=== PATIENT | female | born 1990 | race Caucasian/White ===

== ENCOUNTER 2016-12-13 03:22 | Emergency (ER) | payer BC ==
[2016-12-13 03:34] VITALS: BMI 25.7
[2016-12-13] MEDS ORDERED: METOCLOPRAMIDE HCL INJECTION 10 MG/2 ML VIAL IVPB ONE (03:59)
[2016-12-13] MEDS ORDERED: SODIUM CHLORIDE 1,000 ML IV STA (03:59)
[2016-12-13] MEDS ORDERED: METOCLOPRAMIDE HCL INJECTION 10 MG/2 ML VIAL ONE (04:06)
--- NOTE | 2016-12-13 04:14 | PDOC ---
*Physical Exam - Vital Signs Last Vital Signs Temp Pulse Resp BP Pulse Ox 98.9 F 96 H 18 115/76 100 12/13/16 03:32 12/13/16 03:32 12/13/16 03:32 12/13/16 03:32 12/13/16 03:32 ED Treatment Course - LABORATORY CBC & Chemistry Diagram: 12/13/16 04:17 12/13/16 04:17 Medical Decision Making - Medical Decision Making 12/13/16 04:14 agree with care from CELSO Michaud *DC/Admit/Observation/Transfer Diagnosis at time of Disposition: Epigastric pain - Discharge Dispostion Disposition: HOME Condition at time of disposition: Improved - Prescriptions Prescriptions: Mag Hydrox/Al Hydrox/Simeth [Mylanta Suspension -] 30 ml PO Q6H #1 bottle Famotidine [Pepcid] 20 mg PO DAILY #14 tablet - Referrals Referrals: Gino Harvey MD [Staff Physician] - - Patient Instructions Printed Discharge Instructions: Gastritis Additional Instructions: Take medications as directed
[2016-12-13 04:31] LABS: BASOPHIL 0.1 % (0-2.0); EOSINOPHIL 0.6 % (0-4.5); MCH 26.7 pg (25.7-33.7); MCHC 32.4 g/dl (32.0-36.0); MEAN CELL VOLUME 82.5 fl (80-96); MEAN PLT VOLUME 8.2 fl (7.5-11.1); NEUTROPHILS 80.4 % (42.8-82.8); PLATELET COUNT 211 K/MM3 (134-434); RDW 15.1 % (11.6-15.6); WHITE BLOOD COUNT 6.4 K/mm3 (4.0-10.0)
[2016-12-13 04:49] LABS: ALBUMIN 3.8 g/dl (3.4-5.0); ALK PHOS 95 U/L (45-117); ANION GAP 11 (8-16); BILIRUBIN,TOTAL 0.3 mg/dL (0.2-1.0); CALCIUM 8.4 mg/dL (8.5-10.1); CO2 27 mmol/L (21-32); CREATININE 0.7 mg/dL (0.55-1.02); GLUCOSE,RANDOM 85 mg/dL (74-106); SGOT/AST 28 U/L (15-37); SGPT/ALT 36 U/L (12-78); TOT PROT 6.9 g/dl (6.4-8.2)
[2016-12-13 04:54] LABS: BILIRUBIN,DIRECT < 0.1 mg/dL (0.0-0.2)
--- NOTE | 2016-12-13 05:19 | PDOC ---
History of Present Illness - General Chief Complaint: Pain Stated Complaint: ABDOMINAL PAIN Time Seen by Provider: 12/13/16 03:27 History Source: Patient Exam Limitations: No Limitations - History of Present Illness Travel History: No Initial Comments: 12/13/16 05:15 26yo Female patient presents to ED c/o epigastric abdominal pain. Patient states this past Sunday, h/a, lower abd pain, and dizziness symptoms. She went to [facility] and was diagnosed with renal colic after Ct-scan @ [facility] . Patient states having a non- obstructed 3mm stone. She reports no meds given and was told she would be contacted with a Urology consult today. Patient presents to ED this morning c/o worsening pain, fever (101.4), chills and vomiting. LNMP: "I dont know. I have a 2 month old baby." Timing/Duration: reports: getting worse Quality: reports: moderate Abdominal Pain Onset Location: reports: epigastric Pain Radiation: reports: no radiation Activities at Onset: reports: no specific activity Treatment Prior to Arrive: worse with: analgesics, antacids, cold pack, heat, laxative, enema, other Aggravating Factors: worse with: None, Defecation, Eating, Emotional upset, Exertion, [place], Movement, Voiding, Change in position Alleviating Factors: worse with: None, Belching, Shallow Breathing, Defecation, Eating, Holding Breath, Passing Gas, Change in Position, Rest, Voiding, Vomiting Past History - Travel Traveled outside of the country in the last 30 days: No Close contact w/someone who was outside of country & ill: No - Past Medical History Allergies/Adverse Reactions: Allergies Allergy/AdvReac Type Severity Reaction Status Date / Time No Known Allergies Allergy Verified 12/13/16 03:33 Home Medications: Ambulatory Orders NK [No Known Home Medication] 08/04/15 Anemia: Yes Asthma: No Cancer: No Cardiac Disorders: No CVA: No COPD: No DVT: No Dementia: No Diabetes: No Dialysis: No GI Disorders: No Disorders: No HTN: No Hypercholesterolemia: No HIV: No Kidney Stones: Yes Liver Disease: No Psychiatric Problems: No Suicide Attempt (Hx): No Seizures: No Thyroid Disease: No Lung CA: No - Reproductive History Is Patient Now?: No (#): 1 Para: 1 Cervical CA: No Dysfunctional Uterine Bleeding: No Ectopic : No Endometrial CA: No Polycystic Ovaries: No Therapeutic (s) & number: No Tubal Ligation: No Spontaneous : 0 - Immunization History Immunization Up to Date: No - Psycho/Social/Smoking Cessation Hx Anxiety: No Suicidal Ideation: No Smoking History: Never smoked Have you smoked in the past 12 months: No Number of Cigarettes Smoked Daily: 2 Cigars Per Day: 0 Information on smoking cessation initiated: No Hx Alcohol Use: No Drug/Substance Use Hx: No Substance Use Type: None Hx Substance Use Treatment: No Abd/GI Specific PMHX - Complaint Specific PMHX Colitis: No Diverticulitis: No Gall Bladder Disease: No GERD: No Hepatitis: No Irritable Bowel Synd (IBS): No Pancreatitis: No GI Ulcer Disease: No Review of Systems - Review of Systems Able to Perform ROS?: Yes Is the patient limited [place] proficient: No Constitutional: Yes: Chills, Fever ABD/GI: Yes: Nausea, Poor Fluid Intake, Vomiting, Abdominal cramping. No: Abdominal Distended, Constipated, Diarrhea, Poor Appetite, Rectal Bleeding : No: Burning, Dysuria, Frequency, Flank Pain, Hematuria, Urgency Musculoskeletal: No: Back Pain All Other Systems: Reviewed and Negative *Physical Exam - Vital Signs Last Vital Signs Temp Pulse Resp BP Pulse Ox 98.9 F 96 H 18 115/76 100 12/13/16 03:32 12/13/16 03:32 12/13/16 03:32 12/13/16 03:32 12/13/16 03:32 - Physical Exam General Appearance: Yes: Nourished, Appropriately Dressed. No: Apparent Distress, Mild Distress, Moderate Distress, Severe Distress Neck: positive: Trachea midline, Normal Thyroid, Supple. negative: Rigid, Stridor, Lymphadenopathy (R), Lymphadenopathy (L) Respiratory/Chest: positive: Lungs Clear, Normal Breath Sounds. negative: Chest Tender, Respiratory Distress, Accessory Muscle Use, Labored Respiration, Rapid RR, Rhonchi, Stridor, Wheezing Cardiovascular: positive: Regular Rhythm, Regular Rate Gastrointestinal/Abdominal: positive: Normal Bowel Sounds, Tender (Epigastric region), Soft, Rebound, Tenderness (Epigastric region). negative: Distended, Guarding Musculoskeletal: positive: Normal Inspection. negative: CVA Tenderness Extremity: positive: Normal Capillary Refill, Normal Inspection, Normal Range of Motion. negative: Pedal Edema, Swelling, Calf Tenderness, Erythema, Inflammation Integumentary: positive: Normal Color, Dry, Warm. negative: Erythema, Rash, Swelling Neurologic: positive: chemical maker II-XII NML intact, Fully Oriented, Alert, Normal Mood/ Affect, Normal Response, Motor Strength 10/20 ED Treatment Course - LABORATORY CBC & Chemistry Diagram: 12/13/16 04:17 12/13/16 04:17 - ADDITIONAL ORDERS Additional order review: Laboratory Results 12/13/16 04:17 Sodium 140 Potassium 3.8 Chloride 102 Carbon Dioxide 27 Anion Gap 11 BUN 13 Creatinine 0.7 D Random Glucose 85 Calcium 8.4 L Total Bilirubin 0.3 D Direct Bilirubin < 0.1 AST 28 D ALT 36 D Alkaline Phosphatase 95 D Total Protein 6.9 Albumin 3.8 12/13/16 04:17 RBC 4.49 MCV 82.5 MCHC 32.4 RDW 15.1 D MPV 8.2 Neutrophils % 80.4 D Lymphocytes % 8.9 D Monocytes % 10.0 Eosinophils % 0.6 Basophils % 0.1 - RADIOLOGY Radiology Studies Ordered: Category Date Time Status GALLBLADDER US [US] Stat Ultrasound 12/13/16 04:13 Ordered - Medications Given in the ED: ED Medications Discontinued Medications Generic Name Dose Route Start Last Admin Trade Name Freq PRN Reason Stop Dose Admin Sodium Chloride 1,000 mls @ 1,000 mls/hr 12/13/16 03:59 12/13/16 04:20 Normal Saline - IV 12/13/16 04:58 1,000 mls/hr ASDIR STA Administration Metoclopramide HCl 10 mg 12/13/16 03:59 12/13/16 04:21 Reglan Injection - IVPB 12/13/16 04:00 10 mg ONCE ONE Administration
[2016-12-13 06:27] LABS: URINE APPEARANCE CLEAR; URINE BILIRUBIN NEGATIVE (NEGATIVE); URINE BLOOD NEGATIVE (NEGATIVE); URINE COLOR YELLOW; URINE GLUCOSE (UA) NEGATIVE (NEGATIVE); URINE KETONE 2+ (NEGATIVE); URINE LEUK ESTERASE NEGATIVE (NEGATIVE); URINE NITRITE NEGATIVE (NEGATIVE); URINE UROBILINOGEN NEGATIVE E.U./dl (0.2-1.0)
[2016-12-13 06:29] LABS: URINE PROTEIN 1+ (NEGATIVE)
[2016-12-13 06:35] LABS: URINE MUCUS MANY; URINE RBC 1 /hpf (0-3); URINE WBC 3 /hpf (3-5)
[2016-12-13 06:58] VITALS: BP 94/50; PULSE 63; TEMP 98.4
[2016-12-13] MEDS ORDERED: FAMOTIDINE 20 MG/50 ML IVPB 50 ML IVPB ONE ×2 (07:34→07:49)
[2016-12-13] MEDS ORDERED: MAG HYDROX/AL HYDROX/SIMETH 30 ML UNIT-DOSE CUP PO ONE (07:35)
[2016-12-13] MEDS ORDERED: ONDANSETRON 4 MG/2 ML VIAL IVPUSH ONE (07:35)
--- NOTE | 2016-12-13 07:41 | PDOC ---
*Physical Exam - Vital Signs Last Vital Signs Temp Pulse Resp BP Pulse Ox 98.4 F 63 18 94/50 96 12/13/16 06:57 12/13/16 06:57 12/13/16 06:57 12/13/16 06:57 12/13/16 06:57 - Physical Exam General Appearance: Yes: Appropriately Dressed. No: Apparent Distress HEENT: positive: Normal Voice Neck: positive: Supple Respiratory/Chest: negative: Respiratory Distress Gastrointestinal/Abdominal: positive: Normal Bowel Sounds, Tender (to epigastric ), Soft. negative: Distended, Guarding, Rebound Musculoskeletal: negative: CVA Tenderness Integumentary: positive: Dry, Warm Neurologic: positive: Fully Oriented, Alert, Normal Mood/Affect ED Treatment Course - LABORATORY CBC & Chemistry Diagram: 12/13/16 04:17 12/13/16 04:17 - ADDITIONAL ORDERS Additional order review: Laboratory Results 12/13/16 12/13/16 06:08 04:17 Sodium 140 Potassium 3.8 Chloride 102 Carbon Dioxide 27 Anion Gap 11 BUN 13 Creatinine 0.7 D Random Glucose 85 Calcium 8.4 L Total Bilirubin 0.3 D Direct Bilirubin < 0.1 AST 28 D ALT 36 D Alkaline Phosphatase 95 D Total Protein 6.9 Albumin 3.8 Urine Color Yellow Urine Appearance Clear Urine pH 5.0 D Urine Protein 1+ H Urine Glucose (UA) Negative Urine Ketones 2+ H Urine Blood Negative Urine Nitrite Negative Urine Bilirubin Negative Urine Urobilinogen Negative Ur Leukocyte Esterase Negative Urine RBC 1 Urine WBC 3 Ur Epithelial Cells Rare Urine Mucus Many Urine HCG, Qual Negative 12/13/16 04:17 RBC 4.49 MCV 82.5 MCHC 32.4 RDW 15.1 D MPV 8.2 Neutrophils % 80.4 D Lymphocytes % 8.9 D Monocytes % 10.0 Eosinophils % 0.6 Basophils % 0.1 - Medications Given in the ED: ED Medications Discontinued Medications Generic Name Dose Route Start Last Admin Trade Name Freq PRN Reason Stop Dose Admin Sodium Chloride 1,000 mls @ 1,000 mls/hr 12/13/16 03:59 12/13/16 04:20 Normal Saline - IV 12/13/16 04:58 1,000 mls/hr ASDIR STA Administration Metoclopramide HCl 10 mg 12/13/16 03:59 12/13/16 04:21 Reglan Injection - IVPB 12/13/16 04:00 10 mg ONCE ONE Administration Medical Decision Making - Medical Decision Making 12/13/16 07:35 pt signed out to meat 7am today: 26-year-old female, no significant history, here with diffuse abdominal pain with nausea 4 days. [facility] and [facility] scan which showed a 3 mm non-obstructing stone, but does not remember on what side stone was seen or exact the location. States she was not started on medication because she is currently breast-feeding, but reports to me now that she has over 100 frozen bags of breast milk at home and is okay taking medications. Came to ED this a.m. because pain worsened yesterday and had a fever or 101 prior to coming to the ED. Vomited once yesterday. Pt states stool was softer after ingesting po contrast for her CAT scan yesterday, otherwise denies diarrhea or other change in bowel movements. Vitals here normal and found to have mostly epigastric pain on exam as per prior provider, neg and labs unremarkable, has since been given reglan. US RUQ pending. On reassessment now, pt in NAD but continues to have some ttp on palpation to epigastrium, mild ttp to RUQ but no murpheys and NT over mcburneys. Trial of GI cocktail in progress for possible gastritis/GERD. US pending 12/13/16 07:56 12/13/16 09:39 5mm non-obstructing R renal pole stone, GB wnl, no e/o catrachito. On reassessment, pt reports feeling better and appears well. Was able to boni po in ED. Stable for discharge w/ rxs and referral to PMD 12/13/16 10:11 12/13/16 10:11 12/13/16 10:11 *DC/Admit/Observation/Transfer Diagnosis at time of Disposition: Epigastric pain - Discharge Dispostion Disposition: HOME Condition at time of disposition: Improved - Prescriptions Prescriptions: Mag Hydrox/Al Hydrox/Simeth [Mylanta Suspension -] 30 ml PO Q6H #1 bottle Famotidine [Pepcid] 20 mg PO DAILY #14 tablet - Referrals Referrals: Gino Harvey MD [Staff Physician] - - Patient Instructions Printed Discharge Instructions: Gastritis Additional Instructions: Take medications as directed
[2016-12-13] MEDS ORDERED: MAG HYDROX/AL HYDROX/SIMETH 30 ML UNIT-DOSE CUP ONE (07:48)
[2016-12-13] MEDS ORDERED: ONDANSETRON 4 MG/2 ML VIAL ONE (07:49)
== END 2016-12-13 10:14 | disposition home or self-care (01) ==
LOC: JER 03:22
PROC: 3E0337Z Introduction of Electrolytic and Water Balance Substance into Peripheral Vein, Percutaneous Approach (ICD-10-PCS; principal; 2016-12-13)
PROC: 3E033GC Introduction of Other Therapeutic Substance into Peripheral Vein, Percutaneous Approach (ICD-10-PCS; 2016-12-13)
PROC: 3E033GC Introduction of Other Therapeutic Substance into Peripheral Vein, Percutaneous Approach (ICD-10-PCS; 2016-12-13)
DX: R10.13 Epigastric pain (principal); N20.0 Calculus of kidney
CPT/HCPCS: 36415; 76705-TC; 80048; 80076; 81003; 81015; 84703; 85025; 99283-25

== ENCOUNTER 2017-01-01 06:27 | Day surgery (SDC) | payer BC ==
[2016-12-28 12:58] VITALS: BMI 25.7
[2017-01-01 07:26] VITALS: TEMP 97.8
[2017-01-01] MEDS ORDERED: PROPOFOL 20 ML ONE ×2 (08:05)
[2017-01-01] MEDS ORDERED: MIDAZOLAM HCL 2 MG/2 ML SINGLE DOSE VIAL ONE (08:06)
[2017-01-01] MEDS ORDERED: LIDOCAINE HCL/PF 2% SDV 5ML VIAL ONE (08:21)
[2017-01-01] MEDS ORDERED: LEVOFLOXACIN 500 MG PREMIX BAG IVPB ONE (08:26)
--- NOTE | 2017-01-01 09:38 | OP ---
Operative Note - Note: Operative Date: 01/01/17 Pre-Operative Diagnosis: right renal stone Operation: right eswl Findings: 7mm right mid-pole stone Surgeon: Jose Cruz Michael Anesthesia: General Operative Report Dictated: Yes
[2017-01-01] MEDS ORDERED: ACETAMINOPHEN 325 MG TABLET (FP) PO PRN (09:51)
[2017-01-01] MEDS ORDERED: oxyCODONE HCL 5 MG TABLET PO PRN (09:51)
[2017-01-01] MEDS ORDERED: ONDANSETRON 4 MG/2 ML VIAL IVPUSH PRN (09:51)
[2017-01-01] MEDS ORDERED: oxyCODONE HCL 5 MG TABLET ONE (11:30)
[2017-01-01] MEDS ORDERED: oxyCODONE HCL 5 MG TABLET PO ONE (11:35)
[2017-01-01 12:21] VITALS: BP 98/59; PULSE 58
--- NOTE | 2017-01-02 13:16 | OP ---
DATE OF OPERATION: 01/01/2017 PREOPERATIVE DIAGNOSIS: Right renal stone. POSTOPERATIVE DIAGNOSIS: Right renal stone. PROCEDURE: Right extracorporeal shock wave lithotripsy. ATTENDING SURGEON: Jeet Churchill MD ANESTHESIA: General. DESCRIPTION OF OPERATION: The patient was brought in the operating room and placed in a supine position on the operating room table. Ultrasonography and fluoroscopy were performed. A 7-mm right mid-pole stent was identified. Patient was then given preoperative antibiotics, and anesthesia was administered. Extracorporeal shock wave lithotripsy was then performed, 2500 impulses at 20 joules of power were administered to the stone with excellent fragmentation under real-time ultrasonography and fluoroscopy. No complications were noted. The patient tolerated the procedure very well. The disposition of the patient was to the recovery room. JEET CHURCHILL M.D. [id number]
== END 2017-01-01 13:17 | disposition home or self-care (01) ==
LOC: JASU-SURG 06:27
PROVIDERS: ATTEND Urology
PROC: 0TF3XZZ Fragmentation in Right Kidney Pelvis, External Approach (ICD-10-PCS; principal; 2017-01-01 08:00)
DX: N20.0 Calculus of kidney (principal)
CPT/HCPCS: 84703; 94760

== ENCOUNTER 2021-03-09 01:25 | Emergency (ER) | payer BC ==
[2021-03-09 01:56] VITALS: BP 100/68; PULSE 89; TEMP 98.3; BMI 25.9
[2021-03-09 02:35] LABS: BASO % 0.5 % (0-2.0); EOS % 2.7 % (0-4.5); HEMATOCRIT 35.2 % (32.4-45.2); LYMPH % 17.6 % (8-40); MCH 28.3 pg (25.7-33.7); MEAN CELL VOLUME 83.2 fl (80-96); MEAN PLT VOLUME 8.4 fl (7.5-11.1); MONO % 9.8 % (3.8-10.2); NEUT % 69.4 % (42.8-82.8); PLATELET COUNT 274 10^3/uL (134-434); RBC 4.23 M/mm3 (3.60-5.2); RDW 13.6 % (11.6-15.6); WHITE BLOOD COUNT 6.5 K/mm3 (4.0-10.0)
[2021-03-09 02:51] LABS: CHLORIDE 106 mmol/L (98-107); SODIUM 139 mmol/L (136-145)
[2021-03-09 02:53] LABS: ALBUMIN 3.7 g/dl (3.4-5.0); ANION GAP 6 MMOL/L (8-16); BLOOD UREA NITROGEN 11.9 mg/dL (7-18); CALCIUM 8.9 mg/dL (8.5-10.1); CO2 26 mmol/L (21-32); GLUCOSE,RANDOM 99 mg/dL (74-106)
[2021-03-09 02:56] LABS: CREATININE 0.9 mg/dL (0.55-1.3); SGOT/AST 19 U/L (15-37); SGPT/ALT 16 U/L (13-61)
[2021-03-09 02:58] LABS: BILIRUBIN,TOTAL 0.2 mg/dL (0.2-1); TOT PROT 7.2 g/dl (6.4-8.2)
[2021-03-09 02:59] LABS: ALK PHOS 66 U/L (45-117)
== END 2021-03-09 04:23 | disposition home or self-care (01) ==
LOC: JER 01:25
DX: U07.1 COVID-19 (principal); R06.02 Shortness of breath
CPT/HCPCS: 36415; 71046-TC-FY; 80053; 82550; 84484; 84703; 85025; 85379; 93005; 93010; 99285-25; C9803; U0003; U0005

== ENCOUNTER 2021-03-09 15:18 | Emergency (ER) | payer BC ==
[2021-03-09 15:23] VITALS: BP 96/53; PULSE 85; TEMP 100.1; BMI 25.9
[2021-03-09] MEDS ORDERED: CASIRIVIMAB/IMDEVIMAB 10 ML in SODIUM CHLORIDE 100 ML IVPB ONE (16:06)
== END 2021-03-09 18:09 | disposition home or self-care (01) ==
LOC: JCOVINFU 15:18 → JER 15:18 → JCOVINFU 18:09
DX: U07.1 COVID-19 (principal)
CPT/HCPCS: 36415; 71046-TC-FY; 80053; 82550; 84484; 84703; 85025; 85379; 93005; 93010; 99284-25; 99285-25; C9803; Q0240; U0003; U0005

== ENCOUNTER 2022-09-03 14:55 | Emergency (ER) | payer BC ==
[2022-09-03 15:09] VITALS: BP 120/72; PULSE 82; RESP 18; TEMP 98; BMI 25.7
[2022-09-03] MEDS ORDERED: METHOCARBAMOL 500 MG TABLET PO ONE (16:25)
[2022-09-03] MEDS ORDERED: LIDOCAINE 5% TOPICAL PATCH TP ONE (16:25)
[2022-09-03] MEDS ORDERED: KETOROLAC TROMETHAMINE 30 MG/1 ML VIAL IM ONE (16:25)
[2022-09-03] MEDS ORDERED: LIDOCAINE 5% TOPICAL PATCH ONE ×2 (16:26→18:38)
[2022-09-03] MEDS ORDERED: KETOROLAC TROMETHAMINE 30 MG/1 ML VIAL ONE (16:27)
[2022-09-03] MEDS ORDERED: METHOCARBAMOL 500 MG TABLET ONE (16:27)
[2022-09-03 16:57] LABS: HCG,QUALITATIVE URINE Negative
[2022-09-03 17:12] LABS: PH,URINE 5.5 (5.0-8.0); URINE APPEARANCE CLEAR; URINE BILIRUBIN NEGATIVE (NEGATIVE); URINE COLOR YELLOW; URINE GLUCOSE (UA) NEGATIVE (NEGATIVE); URINE KETONE NEGATIVE (NEGATIVE); URINE LEUK ESTERASE NEGATIVE (NEGATIVE); URINE NITRITE NEGATIVE (NEGATIVE); URINE PROTEIN NEGATIVE (NEGATIVE); URINE UROBILINOGEN 0.2 mg/dL (0.2-1.0)
[2022-09-03] MEDS ORDERED: LIDOCAINE PATCH REMOVAL MC SCH (22:00)
== END 2022-09-03 18:59 | disposition home or self-care (01) ==
LOC: JERFT 14:55 → JER 14:55 → JERFT 18:59
PROC: 3E0233Z Introduction of Anti-inflammatory into Muscle, Percutaneous Approach (ICD-10-PCS; principal; 2022-09-03)
DX: M54.50 Low back pain, unspecified (principal)
CPT/HCPCS: 81003; 84703; 87086; 99284-25